=== PATIENT | male | born 2000 | race African-American/Black ===

== ENCOUNTER 2023-11-23 19:06 | Emergency (ER) | payer OTHER, SELFPAY ==
[2023-11-23 19:08] VITALS: BP 127/80; BMI 25.8
[2023-11-23 19:15] VITALS: BP 127/80
[2023-11-23 19:34] LABS: % Basophils 0.8 % (0-2); % Eosinophils 1.5 % (0-6); % Lymphocytes 47.7 % (20.5-51.1); % Monocytes 5.1 % (1.7-9.3); % Neutrophils 44.9 % (42.2-75.2); Absolute Eosinophils 0.1 10^3/uL (0-0.7); Absolute Lymphocytes 1.9 10^3/uL (1.2-3.4); Absolute Monocytes 0.2 10^3/uL (0.1-0.6); Absolute Neutrophils 1.8 10^3/uL (1.4-6.5); Hematocrit 42.4 % (39.0-52.0); Hemoglobin 14.7 g/dL (13.0-18.0); Mean Corp Hgb Conc. 34.7 g/dL (33.0-37.0); Mean Corpuscular Hgb 28.5 pg (27.0-31.0); Mean Corpuscular Volume 82.2 fL (80.0-94.0); Mean Platelet Volume 9.4 fL (7.4-10.4); Nucleated Red Blood Cells % 0 % (-); Platelet Count 294 10^3/uL (130-400); Red Blood Cell Count 5.16 10^6/uL (4.70-6.10); White Blood Cell Count 3.9 10^3/uL (4.8-10.8)
[2023-11-23 19:50] LABS: ALT (SGPT) 19 U/L (0-50); AST (SGOT) 25 U/L (17-59); Albumin 4.4 g/dl (3.5-5.0); Alkaline Phosphatase 58 U/L (38-126); Blood Urea Nitrogen 16 mg/dl (9-20); Calcium 9.8 mg/dl (8.4-10.2); Carbon Dioxide 29 mmol/L (22-30); Chloride 99 mmol/L (98-107); Estimated Creatinine Clearance > 125 ml/min; Glucose 89 mg/dl (70-99); Potassium 4.3 mmol/L (3.5-5.1); Sodium 139 mmol/L (135-145); Total Bilirubin 1.2 mg/dl (0.2-1.3); Total Protein 7.5 g/dl (6.3-8.2); eGFR > 60.00
[2023-11-23 20:00] VITALS: BP 109/66
[2023-11-23 20:00] LABS: Troponin I < 0.012 ng/ml
[2023-11-23 20:27] LABS: Erythrocyte Sed Rate 7 mm/hour (0-20)
[2023-11-23 21:00] VITALS: BP 112/69
--- NOTE | 2023-11-23 21:11 | ED.GENMED ---
History of Present Illness
General
Chief Complaint: Chest Pain
Source: patient
Exam Limitations: none
Time Seen by Provider: 11/23/23 19:20
Nursing documentation reviewed up to this point in time: agreed with
Travel History
Have you had any contact with someone who has COVID-19?: No
Do you have any symptoms of coronavirus? Fever > 100 degrees, chills, cough, shortness of breath, sore throat, loss of taste or smell, muscle aches, or headache?: No
History of Present Illness
History of Present Illness:
Patient is a 23-year-old male who presents to the emergency department complaining of left chest pain that is under his left breast and into the center part of his chest that became severe today. Patient has had this intermittently for the past
week. Patient's had a mild cough that is nonproductive as well as mild sore throat without fever or chills for the past week. Patient denies any previous history of similar episodes. Patient has a history of smoking but denies diabetes,
hypertension or elevated cholesterol. Patient denies fever or chills. Patient denies any GI or symptoms. Patient denies any leg pain or swelling. Patient denies any recent injuries. Patient denies positional changes with pain. Patient
denies any increased pain with deep breathing or movement.
Past History
Past History
ED Past Medical History: Psychiatric (Depression); Negative HTN, Hypercholesterolemia, IDDM or NIDDM
Social History
Tobacco: Smoker
Review of Systems
Review of Systems
All Other Systems: ROS reviewed and negative except as documented in HPI and ROS
Constitutional: Reports no symptoms
EENT: Reports sore throat
Respiratory: Reports cough; Denies trouble breathing
Cardiac: Reports chest pain; Denies diaphoresis, palpitations or syncope
ABD/GI: Reports no symptoms
: Reports no symptoms
Musculoskeletal: Reports no symptoms
Skin: Reports no symptoms
Neurological: Reports no symptoms
Hematologic/Lymphatic: Reports no symptoms
Phy Exam
Physical Exam
Physical Exam:
Physical Exam
General: No apparent distress, alert and appropriate, well nourished, well hydrated
HENT: Normocephalic, supple with no lymphadenopathy, no thyromegaly. Oropharynx clear
Eyes: Clear sclera, conjuctiva without injection
Heart: Regular rhythm and rate. No S3, S4. No murmur. No NVD
Lungs: No respiratory distress, no stridor, lung sounds clear and equal bilaterally, chest wall symmetrical and nontender
Abdomen: Soft, nontender, no organomegaly, no CVA tenderness, BS good
Neuro: Alert and oriented x 3, CN II - XII intact, no motor focality, no cerebellar dysfunction
Skin: no rash
Psychiatric: well kept. interactive and cooperative
Extremities: No edema, cyanosis, tenderness, Good and equal peripheral pulses.
Scores
Heart Failure Risk
Heart Failure Risk Score: Not Applicable
Heart Score for Chest Pain Patients
STEMI patient?: Not applicable
Withdrawal Assessment of Alcohol
Withdrawal Assessment Completed?: Not applicable
Course
Orders/Labs/Results
Orders:
Orders
11/23/23 19:21
Electrocardiogram (*1) Urgent
Reason for Study: Chest Pain
EKG- Treatment ONCE
11/23/23 19:27
Complete Blood Count/With Diff Urgent
Comprehensive Metabolic Panel Urgent
Erythrocyte Sed Rate Urgent
Comment: ADD ON
Troponin I Urgent
11/23/23 20:11
Add On- LAB Urgent
Comments:: in lab
Tests Added?: sed rate
11/23/23 20:50
COVID-19 Antigen Urgent
Source: Nasal Swab
Influenza A+B Rapid Molecular Urgent
TAB Source: Nasal Swab
Specimen Description:
11/23/23 21:15
CR Chest - 2 Views Urgent
Comment:
Reason For Exam: left chest pain
Abnormal Lab Results
11/23/23
19:27
WBC 3.9 L 10^3/uL
(4.8-10.8)
11/23/23 19:27
11/23/23 19:27
Vital Signs
Initial and Last Documented VS:
Initial Vital Signs
Temp Pulse Resp BP Pulse Ox
97.7 F 54 17 127/80 100
11/23/23 19:08 11/23/23 19:08 11/23/23 19:08 11/23/23 19:08 11/23/23 19:08
Last Documented Vital Signs
Temp Pulse Resp BP Pulse Ox
97.7 F 50 17 105/63 98
11/23/23 19:08 11/23/23 22:00 11/23/23 22:00 11/23/23 22:00 11/23/23 22:00
*Radiology
Radiology exam reviewed: radiology read reviewed (cxr nad)
*Pulse Oximetry
Patient hypoxic: no
*EKG
Interpreted by ED Provider?: Yes
EKG Intrepretation Date: 11/23/23
EKG Intrepretation Time: 21:14
Interpretation: abnormal
Comparison EKG: no comparison EKG present
Heart Rate: 50
Rate: bradycardiac
Rhythm: sinus
[place]: normal axis
Interval: normal interval
QRS Pattern: normal QRS
Ischemia: ST elevation (Diffusely)
*[employer] And [employer] Administrator Interpretation
Rate: bradycardiac
Interpretation: normal
Heart Rate: 54
Rhythm: sinus
*Critical Care Note
Total Time (30-74mins, 75-104mins- exclusive of procedures): Not Applicable
Update Note
Update Note:
EKG gives the appearance of possible pericarditis however the troponin and sed rate are normal. Believe this is probably baseline for the patient and does not suggest a disease state and is unrelated to the patient's noncardiac chest pain.
ED Attending Note
-
Portions of this chart may have been created with voice recognition software.� Occasional wrong word or��sound alike� substitutions may have occurred due to the inherent limitations of voice recognition software.
Discharge Plan
Departure
Patient Disposition: [facility]
Date of Disposition: 11/23/23
Time of Disposition: 22:20
Patient with high blood pressure during this ER visit?: No
Condition: Fair
Covid-19: Not Applicable
Discharge Problem:
Chest pain, non-cardiac
Instructions: Chest Pain That Is Not Caused by the Heart (DC), Costochondritis (DC)
Referrals:
[facility] [Family Provider] -
Activity Restrictions/Additional Instructions:
Acetaminophen 1000 mg or ibuprofen 400 mg every 6 hours as needed for pain.
Interventions
Interventions:
*Risk Screen - Suicide Last Done: 11/23/23 19:08
*General Assessment Last Done: 11/23/23 19:08
*Neglect/Abuse Screening Last Done: 11/23/23 19:08
ED- Fall Risk Assessment Last Done: 11/23/23 19:22
*ED COVID-19 Vaccine History Last Done: 11/23/23 19:08
*Nursing Disposition Last Done: 11/23/23 22:45
ED- Cardiac Assessment Last Done: 11/23/23 19:22
Discharge Date and Time
Discharge Date/Time: 11/23/23 22:50
[2023-11-23 21:12] LABS: COVID-19 Antigen Negative (Negative)
[2023-11-23 22:00] VITALS: BP 105/63
== END 2023-11-23 22:50 ==
LOC: EMR 19:06
PROVIDERS: EMERGENCY PHYSICIAN Emergency Medicine
DX: R07.89 Other chest pain (principal); F17.200 Nicotine dependence, unspecified, uncomplicated
CPT/HCPCS: 99285; 71046; 80053; 84484; 85025; 85652; 87502; 87811; 93005